=== PATIENT | male | born 1950 | race Caucasian/White ===

== ENCOUNTER 2025-06-10 21:48 | Inpatient (IN) | payer SELFPAY ==
[2025-06-10 22:16] LABS: #Basophils 0.03 10x3/uL (0.0-0.2); #Eosinophils 0.14 10x3/uL (0.0-0.7); #Monocytes 1.00 10x3/uL (0.11-0.59); #Neutrophils 5.48 10x3/uL (1.40-6.50); %Basophils 0.4 % (0.0-1.0); %Eosinophils 1.8 % (0.0-10.0); %Lymphocytes 13.0 % (21.0-51.0); %Monocytes 13.0 % (0.0-10.0); %Neutrophils 71.5 % (42.0-75.0); Hematocrit 42.3 % (42.0-52.0); Hemoglobin 14.0 g/dL (14.0-18.0); Mean Corpuscular Hemoglobin 30.8 pg (27.0-31.0); Mean Corpuscular Volume 93.0 fL (78.0-98.0); Platelet Count 206 10x3/uL (130-400); Red Blood Cell (RBC) Count 4.55 mill/uL (4.70-6.10); White Blood Cell (WBC) Count 7.67 10x3/uL (4.8-10.8)
[2025-06-10 23:13] LABS: ALT (SGPT) 23 U/L (Less than 45); AST (SGOT) 24 U/L (11-34); Albumin 3.7 g/dL (3.1-4.5); Alkaline Phosphatase 59 U/L (40-110); Anion Gap 16 mmol/L (10-20); BUN (Urea Nitrogen) 15 mg/dL (8.4-25.7); Bilirubin, Total 0.4 mg/dL (0.3-1.2); Calc. Creatinine Clearance 0 mL/min (70-130); Calcium 8.9 mg/dL (7.8-10.44); Carbon Dioxide 25 mmol/L (23-31); Chloride 105 mmol/L (98-107); Globulin 2.8 g/dL (2.4-3.5); Glucose 94 mg/dL (83-110); Potassium 4.4 mmol/L (3.5-5.1); Sodium 142 mmol/L (136-145)
[2025-06-11] MEDS ORDERED: Ondansetron PF 4 MG/2 ML Vial IVP PRN (00:28)
[2025-06-11] MEDS ORDERED: Ketorolac Tromethamine 30 MG (1 mL) VIAL IVP PRN (00:28)
[2025-06-11 04:25] VITALS: BMI 21.6
[2025-06-11 06:58] LABS: #Basophils 0.04 10x3/uL (0.0-0.2); #Eosinophils 0.23 10x3/uL (0.0-0.7); #Monocytes 0.99 10x3/uL (0.11-0.59); #Neutrophils 4.81 10x3/uL (1.40-6.50); %Basophils 0.5 % (0.0-1.0); %Eosinophils 3.1 % (0.0-10.0); %Lymphocytes 17.6 % (21.0-51.0); %Monocytes 13.4 % (0.0-10.0); %Neutrophils 65.0 % (42.0-75.0); Hematocrit 40.9 % (42.0-52.0); Hemoglobin 13.8 g/dL (14.0-18.0); Mean Corpuscular Hemoglobin 30.9 pg (27.0-31.0); Mean Corpuscular Volume 91.7 fL (78.0-98.0); Platelet Count 203 10x3/uL (130-400); Red Blood Cell (RBC) Count 4.46 mill/uL (4.70-6.10); White Blood Cell (WBC) Count 7.40 10x3/uL (4.8-10.8)
[2025-06-11 07:27] LABS: ALT (SGPT) 21 U/L (Less than 45); AST (SGOT) 29 U/L (11-34); Albumin 3.3 g/dL (3.1-4.5); Alkaline Phosphatase 56 U/L (40-110); Anion Gap 12 mmol/L (10-20); BUN (Urea Nitrogen) 11 mg/dL (8.4-25.7); Bilirubin, Total 0.4 mg/dL (0.3-1.2); Calc. Creatinine Clearance 58 mL/min (70-130); Calcium 8.5 mg/dL (7.8-10.44); Carbon Dioxide 25 mmol/L (23-31); Cardiac Risk 3.3 (Less than 4.5); Chloride 107 mmol/L (98-107); Cholesterol 160 mg/dl (< 200 Desired); Globulin 2.9 g/dL (2.4-3.5); Glucose 89 mg/dL (83-110); HDL Cholesterol 48 mg/dL (>60 Neg Risk); LDL Cholesterol, Calculated 98 mg/dL; Potassium 3.8 mmol/L (3.5-5.1); Sodium 140 mmol/L (136-145); Triglycerides 70 mg/dL (Less than 150)
[2025-06-11] MEDS: Aspirin 81 mg Enteric Coated Tablet PO SCH (07:27)
[2025-06-11] MEDS ORDERED: Enoxaparin 40 MG (0.4 mL) SYRINGE ONE (08:33)
[2025-06-11] MEDS ORDERED: Famotidine/PF 20 mg/2ml Vial ONE (08:33)
[2025-06-11] MEDS: Famotidine/PF 20 mg/2ml Vial SLOW IVP SCH (08:37)
[2025-06-11] MEDS: Enoxaparin 40 MG (0.4 mL) SYRINGE SC SCH (08:37)
[2025-06-11] MEDS: Rosuvastatin 5 MG TAB PO SCH (20:17)
[2025-06-12 11:24] VITALS: TEMP 98
[2025-06-12 11:28] VITALS: BP 164/77
== END 2025-06-12 15:26 | disposition home or self-care (01) | DRG 64 ==
LOC: ERS 21:48 → ERHOLD 23:58 → PCU 06-11 12:57 → 2SE 06-11 22:37
PROVIDERS: ADMIT Internal Medicine; ATTEND Internal Medicine
DX: I63.512 Cerebral infarction due to unspecified occlusion or stenosis of left middle cerebral artery (principal); I21.A1 Myocardial infarction type 2; I16.1 Hypertensive emergency; N40.0 Benign prostatic hyperplasia without lower urinary tract symptoms; R47.81 Slurred speech; R13.10 Dysphagia, unspecified; R29.810 Facial weakness; R29.702 NIHSS score 2; R91.1 Solitary pulmonary nodule
CPT/HCPCS: 36415; 70450; 70551; 71250; 80053; 80061; 84484; 85025; 93005; 93306; J1308; J1650